=== PATIENT | female | born 1955 | race Caucasian/White ===

== ENCOUNTER 2018-01-26 08:15 | Day surgery (SDC) | payer OTHER ==
[~2018-01-26 08:15] MED LIST: ATROPINE 1 MG/10 ML SYRINGE; EPHEDrine SULFATE 50 MG/5 ML SYG
[2018-01-26] MEDS: SOD CHLORIDE 0.9% 1,000 ML IV (11:07)
[2018-01-26 11:20] LABS: ADD MAN DIFF? NO
[2018-01-26 11:24] LABS: BASOPHILS % 0.5 % (0.0-2.0); EOSINOPHILS # 0.3 10^3/ul (0.0-0.5); EOSINOPHILS % 3.8 % (0.0-7.0); HEMATOCRIT 41.1 % (37.0-47.0); HEMOGLOBIN 13.3 g/dl (12.0-16.0); LYMPHOCYTES # 1.7 10^3/ul (0.8-2.9); LYMPHOCYTES % 21.6 % (15.0-51.0); MEAN CORPUSCULAR HEMOGLOBIN 25.8 pg (29.0-33.0); MEAN CORPUSCULAR HGB CONC 32.4 g/dl (32.0-37.0); MEAN CORPUSCULAR VOLUME 79.7 fl (82.0-101.0); MONOCYTE # 0.5 10^3/ul (0.3-0.9); MONOCYTES % 6.3 % (0.0-11.0); NEUTROPHIL # 5.4 10^3/ul (1.6-7.5); NEUTROPHILS % 67.4 % (39.0-77.0); PLATELET COUNT 246 10^3/UL (140-415); RED BLOOD COUNT 5.16 10^6/ul (4.20-5.40); RED CELL DISTRIBUTION WIDTH 13.7 % (11.5-14.5)
[2018-01-26 11:33] LABS: INR 0.98; PROTIME 13.1 Sec (11.9-14.9)
[2018-01-26] MEDS ORDERED: VANCOMYCIN 2 GM in SOD CHLORIDE 0.9% 500 ML IVPB (12:00)
[2018-01-26 13:51] LABS: ALANINE AMINOTRANSFERASE 15 IU/L (13-69); ALBUMIN 3.8 g/dl (3.3-4.9); ALBUMIN/GLOBULIN RATIO 1.05; ALKALINE PHOSPHATASE 87 IU/L (42-121); ANION GAP 8 (5-13); ASPARTATE AMINO TRANSFERASE 29 IU/L (15-46); BILIRUBIN,INDIRECT 0.7 mg/dl (0-1.1); BILIRUBIN,TOTAL 0.7 mg/dl (0.2-1.3); BLOOD UREA NITROGEN 29 mg/dl (7-20); CARBON DIOXIDE 24 mmol/L (21-31); CHLORIDE 108 mmol/L (97-110); CREATININE 0.62 mg/dl (0.44-1.00); Estimated GFR > 60 mL/min (>60); GLUCOSE 177 mg/dl (70-220); POTASSIUM 4.3 mmol/L (3.5-5.1); SODIUM 140 mmol/L (135-144); TOTAL PROTEIN 7.4 g/dl (6.1-8.1)
[2018-01-26] MEDS ORDERED: METOCLOPRAMIDE 10 MG INJ (15:13)
[2018-01-26] MEDS ORDERED: ONDANSETRON 4 MG INJ (15:13)
[2018-01-26] MEDS ORDERED: PROPOFOL 20 ML (15:13)
[2018-01-26] MEDS ORDERED: LIDOCAINE 2% (SDV) 5 ML INJ (15:13)
[2018-01-26] MEDS ORDERED: ISOSULFAN BLUE 1% 5 ML INJ SC (15:14)
[2018-01-26] MEDS ORDERED: MEPERIDINE 100 MG INJ (15:15)
[2018-01-26] MEDS: VANCOMYCIN 1 GM (PMX) 250 ML IVPB (15:20)
[2018-01-26] MEDS ORDERED: METOCLOPRAMIDE 10 MG INJ IV (15:30)
[2018-01-26] MEDS ORDERED: LABETALOL HCL 20MG INJ IV (15:30)
[2018-01-26] MEDS ORDERED: hydrALAzine 20 MG INJ IV (15:30)
[2018-01-26] MEDS ORDERED: OXYCODONE/ACETAMINOPHEN (5/325) TAB PO ×2 (15:30)
[2018-01-26] MEDS ORDERED: MEPERIDINE 25 MG INJ IV (15:30)
[2018-01-26] MEDS ORDERED: EPHEDrine SULFATE 50 MG/5 ML SYG IV (15:30)
[2018-01-26] MEDS ORDERED: HYDROmorphONE 1 MG/5 ML IV SYRINGE IV (15:30)
[2018-01-26] MEDS ORDERED: ONDANSETRON 4 MG INJ IV (15:30)
[2018-01-26] MEDS ORDERED: MIDAZOLAM 1 MG/ML 2 ML INJ IV (15:30)
[2018-01-26] MEDS ORDERED: FENTAnyl 50 MCG/ML VIAL IV ×3 (15:30)
[2018-01-26] MEDS ORDERED: DIPHENHYDRAMINE 50 MG INJ IV (15:30)
[2018-01-26] MEDS ORDERED: HYDROCODONE/APAP (7.5/325) TAB PO (16:30)
[2018-01-26] MEDS: HYDROmorphONE 1 MG/5 ML IV SYRINGE IV ×2 (16:38→16:47)
== END 2018-01-26 18:13 | disposition home or self-care (01) ==
LOC: SDS 08:15
DX: N60.21 Fibroadenosis of right breast (principal); E11.9 Type 2 diabetes mellitus without complications; I10 Essential (primary) hypertension
CPT/HCPCS: 19301; 80053; 82962; 85025; 85610; 85730; 88307